=== PATIENT | female | born 1995 | race American Indian/Alaskan Native ===

== ENCOUNTER 2017-02-04 14:46 | Inpatient (IN) | payer OTHER ==
[2017-02-04 14:52] VITALS: BMI 28.1
[2017-02-04] MEDS ORDERED: Sodium Chloride 0.9% 1,000 ML IV STA (15:09)
--- NOTE | 2017-02-04 15:25 | ED PDOC ---
Arrival/HPI - General Chief Complaint: Pain, Chronic Time Seen by Provider: 02/04/17 14:51 - History of Present Illness Narrative History of Present Illness (Text): 02/04/17 15:18 21-year-old female presents the emergency department with low back pain and left lower extremity pain. Patient states she has a history of sickle cell disease and this feels identical to her previous sickle cell crises exacerbation symptoms. Patient denies any chest pain or shortness of breath, denies any dyspnea and exertion, denies any shortness of breath. Patient states that she has no fevers or chills. No other complaints. Past Medical History - Provider Review Nursing Documentation Reviewed: Yes - Infectious Disease Hx of Infectious Diseases: None - Cardiac Hx Circulatory Problems: No - Pulmonary Hx Chronic Obstructive Pulmonary Disease (COPD): No - Neurological Hx Transient Ischemic Attacks (TIA): No - HEENT Hx Cataracts: No - Renal Hx Renal Disorder: No - Endocrine/Metabolic Hx Endocrine Disorders: No - Hematological/Oncological Hx Blood Disorders: Yes Hx Sickle Cell Disease: Yes - Integumentary Hx Dermatological Disorder: No - Musculoskeletal/Rheumatological Hx Musculoskeletal Disorders: No - Gastrointestinal Hx Gastrointestinal Disorders: No - Genitourinary/Gynecological Hx Genitourinary Disorders: No - Psychiatric Hx Psychophysiologic Disorder: No Hx Substance Use: No - Anesthesia Hx Anesthesia: No Family/Social History Family/Social History: Unknown Family HX Smoking Status: Current Some Days Smoker Hx Alcohol Use: Yes Frequency of alcohol use: Socially Hx Substance Use: No Allergies/Home Meds Allergies/Adverse Reactions: Allergies No Known Allergies Allergy (Verified 02/04/17 14:52) Home Medications: Home Meds Medication Instructions Recorded Confirmed No Known Home Med 02/04/17 02/04/17 Physical Exam - Physical Exam Narrative Physical Exam (Text): 02/04/17 15:20 - Review of Systems Constitutional: Normal. absent: Fatigue, Weight Change, Fevers Eyes: Normal ENT: denies sore throat, denies tristhmus Respiratory: Normal. absent: SOB, Cough, Sputum Cardiovascular: absent: Chest Pain, Palpitations, Syncope Gastrointestinal: Normal. absent: Abdominal Pain, Diarrhea, Nausea, Vomiting Genitourinary: Normal. absent: Dysuria, Frequency, Hematuria, vaginal bleeding Musculoskeletal: Arthralgias. absent: Back Pain, Neck Pain Skin: no rashes, no erythema Neurological: absent: Focal Weakness Endocrine: Normal Hemo/Lymphatic: Normal Psychiatric: No suicidal or homicidal ideations Physical exam Patient appears age appropriate in no distress, speaking full sentences without difficulty - Systems Exam Head: Present: Atraumatic, Normocephalic Pupils: Present: PERRL Extroacular Muscles: Present: EOMI Conjunctiva: Present: Normal Mouth: Present: Moist Mucous Membranes Neck: Present: Normal Range of Motion. No: MIDLINE TENDERNESS, Paraspinal Tenderness Respiratory/Chest: Present: Clear to Auscultation, Good Air Exchange. No: Respiratory Distress, Accessory Muscle Use, Tachypneic Cardiovascular: Present: Regular Rate and Rhythm, Normal S1, S2, Peripheal Pulses Present. No: Murmurs Abdomen: Present: Normal Bowel Sounds. No: Tenderness, Distention, Peritoneal Signs, Rebound, Guarding Back: Present: Normal Inspection. No: Midline Tenderness, Paraspinal Tenderness Upper Extremity: Present: Normal Inspection. No: Cyanosis, Edema Lower Extremity: Present: Normal Inspection. b/l LE with +pulses distally, no discoloration, distal neurovasc. intact. No: Edema Neurological: Present: GCS=15, Speech Normal, cranial nerves II through XII fully intact with no cerebellar abnormality, neurosensory fully intact. No focal neurological deficits. Skin: Present: Warm, Dry, Normal Color. No: Rashes Lymphatic: Present: OX3, NI, NC Psychiatric: Present: Alert, Oriented x 3, Normal Insight, Normal Concentration Vital Signs Reviewed: Yes Vital Signs Temp Pulse Resp BP Pulse Ox 02/04/17 16:50 74 18 130/74 99 02/04/17 15:57 79 18 132/89 99 02/04/17 14:55 97.7 F 82 19 134/93 H 99 Temperature: Afebrile Blood Pressure: Hypertensive Pulse: Regular Respiratory Rate: Normal Appearance: Positive for: Well-Appearing Pain Distress: None Mental Status: Positive for: Alert and Oriented X 3 Medical Decision Making ED Course and Treatment: 02/04/17 15:25 21yo female, states she has a hx of SCD, with crisis symptoms. No acute findings on PE. labs, pain meds ordered. will reeval 02/04/17 16:34 Chest xray interpreted by ED physician shows no pneumothorax, no cardiomegaly, no infiltrates 02/04/17 17:25 after morphine and toradol pt states she is still in pain agreeable with admission to the hospital states she has no PMD hospitalist geetha, awaiting callback 02/04/17 17:[address] Toscano, accepted admission to his service - Lab Interpretations Lab Results: 02/04/17 15:20 02/04/17 15:20 Lab Results 02/04/17 16:00: Urine Color Light yellow, Urine Appearance Clear, Urine pH 6.0, Ur Specific [place] 1.015, Urine Protein Negative, Urine Glucose (UA) Negative, Urine Ketones Negative, Urine Blood Large H, Urine Nitrate Negative, Urine Bilirubin Negative, Urine Urobilinogen 0.2, Ur Leukocyte Esterase Negative, Urine RBC Tntc, Urine WBC 0 - 2, Ur Epithelial Cells 1 - 3, Urine Bacteria Few 02/04/17 15:20: Blood Type O POSITIVE, Antibody Screen Negative, BBK History Checked No verified bt 02/04/17 15:20: Sodium 143, Potassium 4.1, Chloride 105, Carbon Dioxide 27, Anion Gap 15, BUN 10, Creatinine 0.6, Est GFR ( Amer) > 60, Est GFR (Non- Af Amer) > 60, Random Glucose 88, Calcium 9.0, Total Bilirubin 1.1, AST 35, ALT 27, Alkaline Phosphatase 71, Total Protein 6.8, Albumin 4.0, Globulin 2.8, Albumin/Globulin Ratio 1.4 02/04/17 15:20: WBC 17.1 H, RBC 4.72, Hgb 12.1, Hct 34.4 L, MCV 72.9 L, MCH 25.6 , MCHC 35.2, RDW 21.8 H, Plt Count 421, MPV 9.7, Gran % 78.6 H, Lymph % (Auto) 11.4 L, [place] % (Auto) 8.1 H, Eos % (Auto) 1.4 L, Baso % (Auto) 0.5, Gran # 13.46 H, Lymph # 2.0, [place] # 1.4 H, Eos # 0.2, Baso # 0.08, Neutrophils % ( Manual) TEST NOT PERFORMED, Lymphocytes % (Manual) TEST NOT PERFORMED, Monocytes % (Manual) TEST NOT PERFORMED, Nucleated RBC % 2, Large Platelets Present, Polychromasia 1+, Hypochromasia 1+, Poikilocytosis (manual 2+, Anisocytosis (manual) 2+, Macrocytosis (manual) 1+, Sickle Cells Slight, Target Cells 2+, Schistocytes Slight, Retic Count 5.37 H - RAD Interpretation Radiology Orders: 02/04/17 15:09 CHEST ONE VIEW [RAD] Stat DUPLEX LOWER EXTRM VEIN LEFT [US] Stat - Medication Orders Current Medication Orders: Discontinued Medications Diphenhydramine HCl (Benadryl) Confirm Administered Dose 50 mg .ROUTE .STK-MED ONE Stop: 02/04/17 15:36 Last Admin: 02/04/17 15:47 Dose: Not Given Non-Admin Reason: Patient Refused Diphenhydramine HCl (Benadryl) 50 mg IVP STAT STA Stop: 02/04/17 15:48 Last Admin: 02/04/17 15:50 Dose: 50 mg Sodium Chloride (Sodium Chloride 0.9%) 1,000 mls @ 1,000 mls/hr IV .Q1H STA Stop: 02/04/17 16:08 Last Admin: 02/04/17 15:37 Dose: 1,000 mls/hr Ketorolac Tromethamine (Toradol) 30 mg IVP STAT STA Stop: 02/04/17 15:10 Last Admin: 02/04/17 15:37 Dose: 30 mg Re-Assess: [facility] Pain Assessment Document 02/04/17 16:37 HP (Rec: 02/04/17 17:[id number] Pain Reassessment Is this a pain reassessment? No Morphine Sulfate (Morphine) 6 mg IVP STAT STA Stop: 02/04/17 15:13 Last Admin: 02/04/17 15:37 Dose: 6 mg Re-Assess: [facility] Pain Assessment Document 02/04/17 16:37 HP (Rec: 02/04/17 17:[address] [id number] Pain Reassessment Is this a pain reassessment? Yes Sleep Is patient sleeping during reassessment? No Presence of Pain Presence of Pain Yes Pain Scale Used Pain Scale Used Numeric Morphine Sulfate (Morphine) 6 mg IVP STAT STA Stop: 02/04/17 16:50 Last Admin: 02/04/17 17:03 Dose: 6 mg Disposition/Present on Arrival - Present on Arrival Any Indicators Present on Arrival: No History of DVT/PE: No History of Uncontrolled Diabetes: No Urinary Catheter: No History of Decub. Ulcer: No History Surgical Site Infection Following: None - Disposition Have Diagnosis and Disposition been Completed?: Yes Diagnosis: Arthralgia Disposition: HOSPITALIZED Disposition Time: 17:33 Patient Plan: Admission Condition: FAIR Forms: [facility] ([place])
[2017-02-04] MEDS ORDERED: DiphenhydrAMINE 50 mg/ml Inj ONE (15:35)
[2017-02-04] MEDS ORDERED: DiphenhydrAMINE 50 mg/ml Inj IVP STA (15:47)
[2017-02-04 15:51] LABS: ALB/GLOB RATIO 1.4 (1.1-1.8); ALKALINE PHOSPHATASE 71 U/L (38-133); ALT/SGPT 27 U/L (7-56); AST/SGOT 35 U/L (15-39); BILIRUBIN,TOTAL 1.1 mg/dL (0.2-1.3); BLOOD UREA NITROGEN 10 mg/dL (7-21); CARBON DIOXIDE 27 mmol/L (21-33); CHLORIDE 105 mmol/L (98-107); GFR AFRICAN-AMERICAN > 60; GLUCOSE,RANDOM 88 mg/dL (70-110); POTASSIUM 4.1 mmol/L (3.6-5.0); SODIUM 143 mmol/L (132-148); TOTAL PROTEIN 6.8 g/dL (5.8-8.3)
[2017-02-04 15:52] LABS: BASO # 0.08 K/mm3 (0.0-2.0); BASO % 0.5 % (0.0-3.0); EOS # 0.2 (0.0-0.7); EOS % 1.4 % (1.5-5.0); GRAN # 13.46 (1.4-6.5); GRAN % 78.6 % (50.0-68.0); HEMATOCRIT 34.4 % (36.0-48.0); LYMPH % 11.4 % (22.0-35.0); MEAN CELL VOLUME 72.9 fl (80.0-105.0); MEAN CORPUSCULAR HEMOGLOBIN 25.6 pg (25.0-35.0); MEAN CORPUSCULAR HGB CONC 35.2 g/dl (31.0-37.0); MEAN PLATELET VOLUME 9.7 fl (7.0-11.0); MONO # 1.4 (0.1-0.6); MONO % 8.1 % (1.0-6.0); PLATELET COUNT 421 10^3/uL (120.0-450.0); RED CELL DISTRIBUTION WIDTH 21.8 % (11.5-14.5); RETIC% 5.37 % (0.5-1.5); WHITE BLOOD COUNT 17.1 10^3/ul (4.5-11.0)
[2017-02-04 16:05] LABS: URINE BILIRUBIN NEGATIVE (NEGATIVE); URINE BLOOD LARGE (NEGATIVE); URINE GLUCOSE (UA) NEGATIVE (NEGATIVE); URINE KETONE NEGATIVE (NEGATIVE); URINE LEUKOCYTE ESTERASE NEGATIVE Leu/uL (NEGATIVE); URINE PROTEIN NEGATIVE mg/dL (<30 mg/dL); URINE UROBILINOGEN 0.2 E.U./dL (<1 E.U./dL)
[2017-02-04 16:07] LABS: URINE APPEARANCE CLEAR (CLEAR); URINE COLOR LIGHT YELLOW (YELLOW)
[2017-02-04 16:10] LABS: URINE BACTERIA FEW (NEG); URINE RBC TNTC /hpf (0-2); URINE WBC 0 - 2 /hpf (0-6)
[2017-02-04 17:27] LABS: ANISOCYTOSIS 2+; HYPOCHROMIA 1+; NUCLEATED RED BLOOD CELL 2 %; POIKILOCYTOSIS 2+; POLYCHROMASIA 1+
[2017-02-04 17:28] LABS: LARGE PLATELETS PRESENT; TARGET CELLS 2+
[2017-02-04] MEDS: Sodium Chloride 0.9% 1,000 ML IV SCH (18:19)
--- NOTE | 2017-02-04 18:20 | CP.PCM.HP ---
<JonathanCarole - Last Filed: 02/04/17 18:54> History of Present Illness - History of Present Illness History of Present Illness: History and Physical for Dr. Farr 21F presents with lower back pain, left lower extremity pain. Patient has a PMH of sickle cell disease. Patient states that it feels like her previous sickle cell crises. Denies SOB, CP, dyspnea on exertion, denies SOB. Patient states she 's had a blood transfusion in the past as a child. The last time the patient had a sickle cell crisis was last year. Patient has never been to [facility] before. CXR and Duplex Lower Extremity Vein Left ordered in ED WBC 17.1 Retic count 5.37 Vitals stable in ED PMH: Sickle Cell Disease PSH: none ALL: NKDA PMD: Dr. Infante - will recheck with patient on proper spelling and contact information Heme/Onc: Dr. Jessica Vick - Office # [phone] Present on Admission - Present on Admission Any Indicators Present on Admission: No History of DVT/PE: No History of Uncontrolled Diabetes: No Urinary Catheter: No Decubitus Ulcer Present: No Past Patient History - Infectious Disease Hx of Infectious Diseases: None - Past Social History Smoking Status: Current Some Days Smoker - CARDIAC Hx Circulatory Problems: No - PULMONARY Hx Chronic Obstructive Pulmonary Disease (COPD): No - NEUROLOGICAL Hx Transient Ischemic Attacks (TIA): No - HEENT Hx Cataracts: No - RENAL Hx Chronic Kidney Disease: No - ENDOCRINE/METABOLIC Hx Endocrine Disorders: No - HEMATOLOGICAL/ONCOLOGICAL Hx Blood Disorders: Yes Hx Sickle Cell Disease: Yes - INTEGUMENTARY Hx Dermatological Problems: No - MUSCULOSKELETAL/RHEUMATOLOGICAL Hx Musculoskeletal Disorders: No - GASTROINTESTINAL Hx Gastrointestinal Disorders: No - GENITOURINARY/GYNECOLOGICAL Hx Genitourinary Disorders: No - PSYCHIATRIC Hx Psychophysiologic Disorder: No Hx Substance Use: No - SURGICAL HISTORY Hx Surgeries: No - ANESTHESIA Hx Anesthesia: No Meds Allergies/Adverse Reactions: Allergies Allergy/AdvReac Type Severity Reaction Status Date / Time No Known Allergies Allergy Verified 02/04/17 19:55 Results - Vital Signs Recent Vital Signs: Last Vital Signs Temp 97.7 F 02/04/17 14:55 Pulse 71 02/04/17 18:00 Resp 18 02/04/17 18:00 BP 128/71 02/04/17 18:00 Pulse Ox 99 02/04/17 18:00 - Labs Result Diagrams: 02/04/17 15:20 02/04/17 15:20 Labs: Laboratory Results - last 24 hr 02/04/17 02/04/17 02/04/17 15:20 15:20 15:20 WBC 17.1 H RBC 4.72 Hgb 12.1 Hct 34.4 L MCV 72.9 L MCH 25.6 MCHC 35.2 RDW 21.8 H Plt Count 421 MPV 9.7 Gran % 78.6 H Lymph % (Auto) 11.4 L [place] % (Auto) 8.1 H Eos % (Auto) 1.4 L Baso % (Auto) 0.5 Gran # 13.46 H Lymph # 2.0 [place] # 1.4 H Eos # 0.2 Baso # 0.08 Neutrophils % (Manual) TEST NOT PERFORMED Lymphocytes % (Manual) TEST NOT PERFORMED Monocytes % (Manual) TEST NOT PERFORMED Nucleated RBC % 2 Large Platelets Present Polychromasia 1+ Hypochromasia 1+ Poikilocytosis (manual 2+ Anisocytosis (manual) 2+ Macrocytosis (manual) 1+ Sickle Cells Slight Target Cells 2+ Schistocytes Slight Retic Count 5.37 H Sodium 143 Potassium 4.1 Chloride 105 Carbon Dioxide 27 Anion Gap 15 BUN 10 Creatinine 0.6 Est GFR ( Amer) > 60 Est GFR (Non-Af Amer) > 60 Random Glucose 88 Calcium 9.0 Total Bilirubin 1.1 AST 35 ALT 27 Alkaline Phosphatase 71 Total Protein 6.8 Albumin 4.0 Globulin 2.8 Albumin/Globulin Ratio 1.4 Urine Color Urine Appearance Urine pH Ur Specific [place] Urine Protein Urine Glucose (UA) Urine Ketones Urine Blood Urine Nitrate Urine Bilirubin Urine Urobilinogen Ur Leukocyte Esterase Urine RBC Urine WBC Ur Epithelial Cells Urine Bacteria Blood Type O POSITIVE Antibody Screen Negative BBK History Checked No verified bt 02/04/17 16:00 WBC RBC Hgb Hct MCV MCH MCHC RDW Plt Count MPV Gran % Lymph % (Auto) [place] % (Auto) Eos % (Auto) Baso % (Auto) Gran # Lymph # [place] # Eos # Baso # Neutrophils % (Manual) Lymphocytes % (Manual) Monocytes % (Manual) Nucleated RBC % Large Platelets Polychromasia Hypochromasia Poikilocytosis (manual Anisocytosis (manual) Macrocytosis (manual) Sickle Cells Target Cells Schistocytes Retic Count Sodium Potassium Chloride Carbon Dioxide Anion Gap BUN Creatinine Est GFR ( Amer) Est GFR (Non-Af Amer) Random Glucose Calcium Total Bilirubin AST ALT Alkaline Phosphatase Total Protein Albumin Globulin Albumin/Globulin Ratio Urine Color Light yellow Urine Appearance Clear Urine pH 6.0 Ur Specific [place] 1.015 Urine Protein Negative Urine Glucose (UA) Negative Urine Ketones Negative Urine Blood Large H Urine Nitrate Negative Urine Bilirubin Negative Urine Urobilinogen 0.2 Ur Leukocyte Esterase Negative Urine RBC Tntc Urine WBC 0 - 2 Ur Epithelial Cells 1 - 3 Urine Bacteria Few Blood Type Antibody Screen BBK History Checked Assessment & Plan - Assessment and Plan (Free Text) Assessment: 21F presenting with retic count 5.37, wbc 17.1, lower back pain, left lower extremity pain and history of sickle cell disease. Plan: Sickle Cell Crisis Monitor daily CBC Monitor Daily Retic count 02/04 Retic Count 5.37 Pain Management: 0.5 mg Dilaudid IVP Q4H IVF NS 150cc/hr DVT/GI PPX Lovenox 30 mg SC QID/Protonix IVP 40mgQD Diet: NPO <Yordan,Anwar A - Last Filed: 02/05/17 08:00> Results - Vital Signs Recent Vital Signs: Last Vital Signs Temp 97.6 F 02/05/17 00:51 Pulse 59 L 02/05/17 00:51 Resp 20 02/05/17 00:51 BP 142/92 H 02/05/17 00:51 Pulse Ox 99 02/05/17 00:51 - Labs Result Diagrams: 02/05/17 07:00 02/05/17 07:00 Labs: Laboratory Results - last 24 hr 02/05/17 02/05/17 07:00 07:00 WBC 16.1 H RBC 4.79 Hgb 12.1 Hct 35.1 L MCV 73.3 L MCH 25.3 MCHC 34.5 RDW 21.7 H Plt Count 419 MPV 9.7 Gran % 74.1 H Lymph % (Auto) 13.0 L [place] % (Auto) 9.6 H Eos % (Auto) 2.9 Baso % (Auto) 0.4 Gran # 11.92 H Lymph # 2.1 [place] # 1.6 H Eos # 0.5 Baso # 0.06 Retic Count 5.45 H Sodium 140 Potassium 4.1 Chloride 101 Carbon Dioxide 30 Anion Gap 13 BUN 11 Creatinine 0.6 Est GFR ( Amer) > 60 Est GFR (Non-Af Amer) > 60 Random Glucose 81 Calcium 8.8 Total Bilirubin 0.9 AST 24 ALT 25 Alkaline Phosphatase 85 Total Protein 6.8 Albumin 3.9 Globulin 2.9 Albumin/Globulin Ratio 1.4 Attending/Attestation - Attestation I have personally seen and examined this patient.: Yes I have fully participated in the care of the patient.: Yes I have reviewed all pertinent clinical information: Yes Notes (Text): 02/04/17 21 year old female with past medical history of sickle cell who is admitted with sickle cell crisis with left leg pain. Continue with iv fluids for hydration. Continue with analgesics as needed. Hematology evaluation is requested. Leukocytosis noted; likely reactive secondary to above. CXR is negative. UA is negative for infection. Will monitor. Henry Farr MD Hospitalist.
[2017-02-04] MEDS: HYDROmorphone 0.5 mg/0.5 ml ISec IVP PRN ×2 (19:10→23:06)
--- NOTE | 2017-02-04 19:12 | US ---
PROCEDURE: Left lower extremity venous US HISTORY: Leg pain and swelling. Evaluate for DVT. PHYSICIAN(S): Tavo Saab MD. TECHNIQUE: Duplex sonography and color-flow Doppler with graded compression were used to evaluate the deep venous system of the left lower extremity. FINDINGS: The visualized deep venous system of the left lower extremity is sonographically normal and compressible. Normal wave forms and augmentation are seen. There is no sonographic evidence for deep venous thrombosis in the visualized segments of the left lower extremity. IMPRESSION: 1. No sonographic evidence for deep venous thrombosis in the visualized segments of the left lower extremity.
[2017-02-04] MEDS: Enoxaparin 30 mg Syringe SC SCH (19:16)
[2017-02-04] MEDS ORDERED: HYDROmorphone 0.5 mg/0.5 ml ISec IVP ONE (20:34)
[2017-02-04] MEDS: DiphenhydrAMINE 50 mg/ml Inj IVP PRN (23:33)
[2017-02-04] MEDS ORDERED: Pneumococcal 23-Valent Vaccine IM ONE (23:42)
[2017-02-05] MEDS: HYDROmorphone 0.5 mg/0.5 ml ISec IVP PRN ×3 (02:48→10:58)
[2017-02-05] MEDS: DiphenhydrAMINE 50 mg/ml Inj IVP PRN ×3 (02:48→10:57)
[2017-02-05] MEDS: Enoxaparin 30 mg Syringe SC SCH (06:43)
[2017-02-05 07:38] LABS: BASO # 0.06 K/mm3 (0.0-2.0); BASO % 0.4 % (0.0-3.0); EOS # 0.5 (0.0-0.7); EOS % 2.9 % (1.5-5.0); GRAN # 11.92 (1.4-6.5); GRAN % 74.1 % (50.0-68.0); HEMATOCRIT 35.1 % (36.0-48.0); LYMPH # 2.1 (1.2-3.4); MEAN CELL VOLUME 73.3 fl (80.0-105.0); MEAN CORPUSCULAR HEMOGLOBIN 25.3 pg (25.0-35.0); MEAN CORPUSCULAR HGB CONC 34.5 g/dl (31.0-37.0); MEAN PLATELET VOLUME 9.7 fl (7.0-11.0); MONO # 1.6 (0.1-0.6); MONO % 9.6 % (1.0-6.0); RED CELL DISTRIBUTION WIDTH 21.7 % (11.5-14.5); RETIC% 5.45 % (0.5-1.5); WHITE BLOOD COUNT 16.1 10^3/ul (4.5-11.0)
[2017-02-05 07:48] LABS: ALB/GLOB RATIO 1.4 (1.1-1.8); ALKALINE PHOSPHATASE 85 U/L (38-133); ALT/SGPT 25 U/L (7-56); AST/SGOT 24 U/L (15-39); BILIRUBIN,TOTAL 0.9 mg/dL (0.2-1.3); BLOOD UREA NITROGEN 11 mg/dL (7-21); CALCIUM 8.8 mg/dL (8.4-10.5); CARBON DIOXIDE 30 mmol/L (21-33); CHLORIDE 101 mmol/L (95-110); GFR AFRICAN-AMERICAN > 60; GLUCOSE,RANDOM 81 mg/dL (70-110); POTASSIUM 4.1 mmol/L (3.6-5.0); SODIUM 140 mmol/L (132-148); TOTAL PROTEIN 6.8 g/dL (5.8-8.3)
--- NOTE | 2017-02-05 07:56 | RAD ---
PROCEDURE: CHEST RADIOGRAPH, 1 VIEW HISTORY: scd COMPARISON: None available. FINDINGS: LUNGS: Clear. PLEURA: No pneumothorax or pleural fluid seen. CARDIOVASCULAR: Normal. OSSEOUS STRUCTURES: No significant abnormalities. VISUALIZED UPPER ABDOMEN: Normal. OTHER FINDINGS: None. IMPRESSION: No active disease.
[2017-02-05] MEDS: Sodium Chloride 0.9% 1,000 ML IV SCH ×2 (08:17→15:00)
[2017-02-05] MEDS: Morphine 4 mg/ml ISec IVP PRN ×5 (08:23→23:26)
--- NOTE | 2017-02-05 08:38 | CP.PCM.PN ---
<JonathanCarole - Last Filed: 02/05/17 13:23> Subjective - Date & Time of Evaluation Date of Evaluation: 02/05/17 Time of Evaluation: 08:38 - Subjective Subjective: Internal Medicine Progress note for Dr. Farr: PT S&E at bedside. Patient complained of pain 10/10 per patient overnight. Patient also complained of itchiness overnight. PRN pain medication was given Dilaudid 0.5 mg Q4H PRN at 0643 Benadryl at [address] Evans Morphine 4mg Q4H PRN [address] Evans Patient states that Dilaudid does not work for her and usually Morphine does. She asked to discontinue morphine. Patient was seen limping from the bathroom and closes the door loudly as we finished our visit to the patient's room. Patient states she feels worse if not the same as yesterday. Patient denies Fever, Chills, chest pain, coughing, shortness of breath. Patient admits to pain in left leg. Patient denies hip pain and lower back pain. Retic 5.45 WBC 16.1 [facility] Sickle cell coordinator [phone] called to discuss patient's history. Patient has Hemoglobin SC. June 2016 last visit on Chronic medication percocet 10/ 325 PO Q6H MScontin Q12, Ibupof 600mg Q6H PRN. However, patient has not had a prescription from Dr. Vick since June. 04/2016 went to the ED for sickle cell crisis and went for observation for 2 days. Patient went to ED for sickle cell crisis in July 12, , 2016 at [facility]. June Retic counts during hospital visit: 07/09/2016, 4.3 Retic,004149 5.7, 5.8 Patient received toradol 30mg q6H LACY for 72 hr. 8mg morphine Q3H with Benadryl 25 Q3H, MS contin 30 Q12H, Enoxaparin, folic acid in the hospital. Objective - Vital Signs/Intake and Output Vital Signs (last 24 hours): Temp Pulse Resp BP Pulse Ox 97.6 F 59 L 20 142/92 H 99 02/05/17 00:51 02/05/17 00:51 02/05/17 00:51 02/05/17 00:51 02/05/17 00:51 Intake and Output: 02/05/17 02/05/17 06:59 18:59 Intake Total 660 Balance 660 - Medications Medications: Current Medications Diphenhydramine HCl (Benadryl) 25 mg IVP Q4H PRN PRN Reason: Allergy symptoms Last Admin: 02/05/17 06:43 Dose: 25 mg Enoxaparin Sodium (Lovenox) 40 mg SC DAILY LACY PRN Reason: Protocol Hydromorphone HCl (Dilaudid) 0.5 mg IVP Q4H PRN PRN Reason: Pain, moderate (4-7) Last Admin: 02/05/17 06:43 Dose: 0.5 mg Sodium Chloride (Sodium Chloride 0.9%) 1,000 mls @ 150 mls/hr IV .Q6H40M LACY Last Admin: 02/05/17 08:17 Dose: 150 mls/hr Morphine Sulfate (Morphine) 4 mg IVP Q4H PRN PRN Reason: Pain, severe (8-10) Last Admin: 02/05/17 08:23 Dose: 4 mg Pantoprazole Sodium (Protonix Inj) 40 mg IVP DAILY REPLACED BY [facility] - Labs Labs: 02/05/17 07:00 02/05/17 07:00 - Constitutional Appears: Non-toxic, No Acute Distress - Head Exam Head Exam: NORMAL INSPECTION - Eye Exam Eye Exam: EOMI, Normal appearance - ENT Exam ENT Exam: Mucous Membranes Moist - Neck Exam Neck Exam: Full ROM - Respiratory Exam Respiratory Exam: Clear to Ausculation Bilateral, NORMAL BREATHING PATTERN. absent: Accessory Muscle Use, Prolonged Expiratory Phase, Respiratory Distress, Stridor - Cardiovascular Exam Cardiovascular Exam: REGULAR RHYTHM - GI/Abdominal Exam GI & Abdominal Exam: Soft. absent: Tenderness - Extremities Exam Extremities Exam: Full ROM, Normal Inspection, Tenderness. absent: Joint Swelling, Pedal Edema Additional comments: did not appreciate any edema, signs of induration, erythema. Patient states she has a lot of pain on left knee and along left leg. Patient was seen limping from bathroom - Back Exam Back Exam: Full ROM, NORMAL INSPECTION. absent: CVA tenderness (L), CVA tenderness (R), muscle spasm - Neurological Exam Neurological Exam: Alert, Awake, Normal Gait, Oriented x3 - Psychiatric Exam Psychiatric exam: Flat Affect, Normal Affect, Normal Mood - Skin Skin Exam: Dry, Normal Color, Warm Assessment and Plan - Assessment and Plan (Free Text) Assessment: 21F presenting with retic count 5.37, wbc 17.1, lower back pain, left lower extremity pain and history of sickle cell disease. Plan: Sickle Cell Crisis Monitor daily CBC Monitor Daily Retic count 02/04 Retic Count 5.37 Pain Management: 4mg Morphine Q4H, Percocet 5/325 mg for breakthrough Q4H IVF NS 150cc/hr DVT/GI PPX Lovenox 40mg POQD/Protonix IVP 40mgQD Diet: NPO <YordanDidisherin A - Last Filed: 02/05/17 17:44> Objective - Vital Signs/Intake and Output Vital Signs (last 24 hours): Temp Pulse Resp BP Pulse Ox 97.8 F 64 20 146/86 98 02/05/17 16:00 02/05/17 16:00 02/05/17 16:00 02/05/17 16:00 02/05/17 16:00 Intake and Output: 02/05/17 02/05/17 06:59 18:59 Intake Total 660 360 Balance 660 360 - Medications Medications: Current Medications Enoxaparin Sodium (Lovenox) 40 mg SC DAILY REPLACED BY [facility] PRN Reason: Protocol Sodium Chloride (Sodium Chloride 0.9%) 1,000 mls @ 150 mls/hr IV .Q6H40M REPLACED BY [facility] Last Admin: 02/05/17 15:00 Dose: 150 mls/hr Morphine Sulfate (Morphine) 4 mg IVP Q3H PRN PRN Reason: Pain, severe (8-10) Last Admin: 02/05/17 16:37 Dose: 4 mg Oxycodone/Acetaminophen (Percocet 5/325 Mg Tab) 1 tab PO Q6H PRN PRN Reason: Pain, severe (8-10) Stop: 02/08/17 12:52 Pantoprazole Sodium (Protonix Inj) 40 mg IVP DAILY REPLACED BY [facility] Last Admin: 02/05/17 09:45 Dose: 40 mg - Labs Labs: 02/05/17 07:00 02/05/17 07:00 Attending/Attestation - Attestation I have personally seen and examined this patient.: Yes I have fully participated in the care of the patient.: Yes I have reviewed all pertinent clinical information, including history, physical exam and plan: Yes Notes (Text): 02/05/17 17:43 21 year old female with past medical history of sickle cell who is admitted with sickle cell crisis with left leg pain. Continue with iv fluids for hydration. Continue with analgesics as needed. Hematology evaluation is pending. She is on morphine prn for pain and percocet was added. Leukocytosis is likely reactive secondary to above. CXR is negative. UA is negative for infection. Will continue to monitor. Henry Farr MD Hospitalist.
[2017-02-05] MEDS ORDERED: Oxycodone/Acetaminophen 5/325 mg Tab PO PRN (12:51)
[2017-02-05 16:38] VITALS: RESP 20; TEMP 97.8
[2017-02-05 18:34] LABS: PH,URINE 7.5 (4.7-8.0); URINE BILIRUBIN NEGATIVE (NEGATIVE); URINE BLOOD LARGE (NEGATIVE); URINE GLUCOSE (UA) NEGATIVE (NEGATIVE); URINE KETONE NEGATIVE (NEGATIVE); URINE LEUKOCYTE ESTERASE NEGATIVE Leu/uL (NEGATIVE); URINE PROTEIN NEGATIVE mg/dL (<30 mg/dL); URINE UROBILINOGEN 0.2 E.U./dL (<1 E.U./dL)
[2017-02-05 18:37] LABS: URINE APPEARANCE CLEAR (CLEAR); URINE COLOR YELLOW (YELLOW)
[2017-02-05 18:43] LABS: URINE WBC 0 - 2 /hpf (0-6)
[2017-02-05] MEDS: Oxycodone/Acetaminophen 5/325 mg Tab PO PRN (20:32)
[2017-02-06] MEDS: Morphine 4 mg/ml ISec IVP PRN ×4 (03:01→12:33)
[2017-02-06] MEDS: Oxycodone/Acetaminophen 5/325 mg Tab PO PRN ×2 (05:21→11:33)
[2017-02-06 07:01] LABS: ALB/GLOB RATIO 1.5 (1.1-1.8); ALKALINE PHOSPHATASE 70 U/L (38-133); ALT/SGPT 23 U/L (7-56); AST/SGOT 21 U/L (15-39); BILIRUBIN,TOTAL 0.8 mg/dL (0.2-1.3); BLOOD UREA NITROGEN 14 mg/dL (7-21); CALCIUM 8.4 mg/dL (8.4-10.5); CARBON DIOXIDE 30 mmol/L (21-33); CHLORIDE 102 mmol/L (98-107); GFR AFRICAN-AMERICAN > 60; GLUCOSE,RANDOM 108 mg/dL (70-110); POTASSIUM 3.9 mmol/L (3.6-5.0); SODIUM 139 mmol/L (132-148); TOTAL PROTEIN 6.2 g/dL (5.8-8.3)
[2017-02-06 07:08] LABS: BASO # 0.08 K/mm3 (0.0-2.0); BASO % 0.5 % (0.0-3.0); EOS # 0.4 (0.0-0.7); EOS % 2.4 % (1.5-5.0); GRAN # 13.28 (1.4-6.5); GRAN % 75.5 % (50.0-68.0); HEMATOCRIT 33.5 % (36.0-48.0); LYMPH # 2.3 (1.2-3.4); LYMPH % 12.8 % (22.0-35.0); MEAN CELL VOLUME 72.8 fl (80.0-105.0); MEAN CORPUSCULAR HEMOGLOBIN 25.2 pg (25.0-35.0); MEAN CORPUSCULAR HGB CONC 34.6 g/dl (31.0-37.0); MEAN PLATELET VOLUME 9.9 fl (7.0-11.0); MONO # 1.6 (0.1-0.6); MONO % 8.8 % (1.0-6.0); PLATELET COUNT 414 10^3/uL (120.0-450.0); RED CELL DISTRIBUTION WIDTH 21.5 % (11.5-14.5); RETIC% 5.59 % (0.5-1.5); WHITE BLOOD COUNT 17.6 10^3/ul (4.5-11.0)
[2017-02-06 08:32] VITALS: BP 142/95; PULSE 64; O2SAT 99
[2017-02-06] MEDS ORDERED: Enoxaparin 40 mg Syringe SC SCH (10:00)
[2017-02-06] MEDS: Sodium Chloride 0.9% 1,000 ML IV SCH (11:33)
--- NOTE | 2017-02-06 17:01 | CP.PCM.DIS ---
<JonathanCarole - Last Filed: 02/06/17 18:06> Provider - Provider Date of Admission: 02/04/17 17:33 Attending physician: Henry Farr MD Consults: Dr. Cassandra henderson Time Spent in preparation of Discharge (in minutes): 35 Hospital Course - Lab Results Lab Results: Micro Results 02/04/17 20:50 Blood-Venous Blood Culture - Preliminary NO GROWTH AFTER 24 HOURS 02/04/17 20:30 Blood-Venous Blood Culture - Preliminary NO GROWTH AFTER 24 HOURS Most Recent Lab Values WBC 17.6 10^3/ul (4.5-11.0) H 02/06/17 06:12 RBC 4.60 10^6/uL (3.5-6.1) 02/06/17 06:12 Hgb 11.6 g/dL (12.0-16.0) L 02/06/17 06:12 Hct 33.5 % (36.0-48.0) L 02/06/17 06:12 MCV 72.8 fl (80.0-105.0) L 02/06/17 06:12 MCH 25.2 pg (25.0-35.0) 02/06/17 06:12 MCHC 34.6 g/dl (31.0-37.0) 02/06/17 06:12 RDW 21.5 % (11.5-14.5) H 02/06/17 06:12 Plt Count 414 10^3/uL (120.0-450.0) 02/06/17 06:12 MPV 9.9 fl (7.0-11.0) 02/06/17 06:12 Gran % 75.5 % (50.0-68.0) H 02/06/17 06:12 Lymph % (Auto) 12.8 % (22.0-35.0) L 02/06/17 06:12 Ward % (Auto) 8.8 % (1.0-6.0) H 02/06/17 06:12 Eos % (Auto) 2.4 % (1.5-5.0) 02/06/17 06:12 Baso % (Auto) 0.5 % (0.0-3.0) 02/06/17 06:12 Gran # 13.28 (1.4-6.5) H 02/06/17 06:12 Lymph # 2.3 (1.2-3.4) 02/06/17 06:12 [place] # 1.6 (0.1-0.6) H 02/06/17 06:12 Eos # 0.4 (0.0-0.7) 02/06/17 06:12 Baso # 0.08 K/mm3 (0.0-2.0) 02/06/17 06:12 Neutrophils % (Manual) TEST NOT PERFORMED 02/04/17 15:20 Lymphocytes % (Manual) TEST NOT PERFORMED 02/04/17 15:20 Monocytes % (Manual) TEST NOT PERFORMED 02/04/17 15:20 Nucleated RBC % 2 % 02/04/17 15:20 Large Platelets Present 02/04/17 15:20 Polychromasia 1+ 02/04/17 15:20 Hypochromasia 1+ 02/04/17 15:20 Poikilocytosis (manual 2+ 02/04/17 15:20 Anisocytosis (manual) 2+ 02/04/17 15:20 Macrocytosis (manual) 1+ 02/04/17 15:20 Sickle Cells Slight 02/04/17 15:20 Target Cells 2+ 02/04/17 15:20 Schistocytes Slight 02/04/17 15:20 Retic Count 5.59 % (0.5-1.5) H 02/06/17 06:12 Haptoglobin 60 mg/dL (43-212) 02/05/17 08:20 Sodium 139 mmol/L (132-148) 02/06/17 06:15 Potassium 3.9 mmol/L (3.6-5.0) 02/06/17 06:15 Chloride 102 mmol/L (98-107) 02/06/17 06:15 Carbon Dioxide 30 mmol/L (21-33) 02/06/17 06:15 Anion Gap 11 (10-20) 02/06/17 06:15 BUN 14 mg/dL (7-21) 02/06/17 06:15 Creatinine 0.7 mg/dL (0.5-1.4) 02/06/17 06:15 Est GFR ( Amer) > 60 02/06/17 06:15 Est GFR (Non-Af Amer) > 60 02/06/17 06:15 Random Glucose 108 mg/dL (70-110) 02/06/17 06:15 Calcium 8.4 mg/dL (8.4-10.5) 02/06/17 06:15 Total Bilirubin 0.8 mg/dL (0.2-1.3) 02/06/17 06:15 AST 21 U/L (15-39) 02/06/17 06:15 ALT 23 U/L (7-56) 02/06/17 06:15 Alkaline Phosphatase 70 U/L (38-133) 02/06/17 06:15 Lactate Dehydrogenase 651 U/L (333-699) 02/05/17 08:20 Total Protein 6.2 g/dL (5.8-8.3) 02/06/17 06:15 Albumin 3.7 g/dL (3.0-4.8) 02/06/17 06:15 Globulin 2.5 gm/dL 02/06/17 06:15 Albumin/Globulin Ratio 1.5 (1.1-1.8) 02/06/17 06:15 Urine Color Yellow (YELLOW) 02/05/17 18:16 Urine Appearance Clear (CLEAR) 02/05/17 18:16 Urine pH 7.5 (4.7-8.0) 02/05/17 18:16 Ur Specific [place] 1.010 (1.005-1.035) 02/05/17 18:16 Urine Protein Negative mg/dL (<30 mg/dL) 02/05/17 18:16 Urine Glucose (UA) Negative mg/dL (NEGATIVE) 02/05/17 18:16 Urine Ketones Negative mg/dL (NEGATIVE) 02/05/17 18:16 Urine Blood Large (NEGATIVE) H 02/05/17 18:16 Urine Nitrate Negative (NEGATIVE) 02/05/17 18:16 Urine Bilirubin Negative (NEGATIVE) 02/05/17 18:16 Urine Urobilinogen 0.2 E.U./dL (<1 E.U./dL) 02/05/17 18:16 Ur Leukocyte Esterase Negative Andry/uL (NEGATIVE) 02/05/17 18:16 Urine RBC 5 - 10 /hpf (0-2) 02/05/17 18:16 Urine WBC 0 - 2 /hpf (0-6) 02/05/17 18:16 Ur Epithelial Cells 1 - 3 /hpf (0-5) 02/04/17 16:00 Urine Bacteria Few (NEG) 02/04/17 16:00 Blood Type O POSITIVE 02/04/17 15:20 Blood Type Confirm O POSITIVE 02/05/17 07:00 Antibody Screen Negative 02/04/17 15:20 BBK History Checked No verified bt 02/04/17 15:20 - Hospital Course Hospital Course: 21F presents with lower back pain, left lower extremity pain. Patient has a PMH of sickle cell disease. Patient states that it feels like her previous sickle cell crises. Denies SOB, CP, dyspnea on exertion, denies SOB. Patient states she 's had a blood transfusion in the past as a child. The last time the patient had a sickle cell crisis was last year. Patient has never been to [facility] before. CXR and Duplex Lower Extremity Vein Left ordered in ED No pathologies seen on either exam on 02/05/17 PT S&E at bedside. Patient complained of pain 10/10 per patient overnight. Patient also complained of itchiness overnight. PRN pain medication was given Dilaudid 0.5 mg Q4H PRN at 0643 Benadryl [place] [address] Evans Morphine 4mg Q4H PRN [address] Evans Patient states that Dilaudid does not work for her and usually Morphine does. She asked to discontinue morphine. Patient was seen limping from the bathroom and closes the door loudly as we finished our visit to the patient's room. Patient states she feels worse if not the same as yesterday. Patient denies Fever, Chills, chest pain, coughing, shortness of breath. Patient admits to pain in left leg. Patient denies hip pain and lower back pain. Retic 5.45 WBC 16.1 Resident spoke with Sickle cell coordinator [phone] discuss patient's history. Patient has Hemoglobin SC. June 2016 last visit on Chronic medication percocet 10/325 PO Q6H MScontin Q12, Ibupof 600mg Q6H PRN. However, patient has not had a prescription from Dr. Vick since June. 04/2016 went to the ED for sickle cell crisis and went for observation for 2 days. Patient went to ED for sickle cell crisis in July 12, , 2016 at [facility]. June Retic counts during hospital visit: 07/09/2016, 4.3 Retic, 5.7, 5.8 Patient received toradol 30mg q6H LACY for 72 hr. 8mg morphine Q3H with Benadryl 25 Q3H, MS contin 30 Q12H, Enoxaparin, folic acid in the hospital. PT S&E at bedside today. Patient states she feels okay and is ready to be discharged after asking for doctor's note to be excused from work. While writing the prescriptions for medications and the doctor note, patient left her room prior to being handed prescriptions. Resident was called down to hand the prescriptions to the patient. All issues resolved at the time. - Date & Time of H&P Date of H&P: 02/06/17 Time of H&P: 18:06 Discharge Exam - Head Exam Head Exam: NORMAL INSPECTION - Eye Exam Eye Exam: EOMI, Normal appearance - ENT Exam ENT Exam: Mucous Membranes Moist - Neck Exam Neck exam: Full Rom - Respiratory Exam Respiratory Exam: NORMAL BREATHING PATTERN, UNREMARKABLE. absent: Accessory Muscle Use, Respiratory Distress - Cardiovascular Exam Cardiovascular Exam: REGULAR RHYTHM - GI/Abdominal Exam GI & Abdominal Exam: Normal Bowel Sounds, Soft. absent: Pulsatile Mass, Rebound , Tenderness - Extremities Exam Extremities exam: full ROM - Neurological Exam Neurological exam: Alert, Oriented x3 - Psychiatric Exam Psychiatric exam: Flat Affect, Normal Mood - Skin Skin Exam: Dry, Intact, Normal Color, Warm Discharge Plan - Discharge Medications Prescriptions: Acetaminophen/Oxycodone Hydr [Percocet 10/325 mg Tab] 1 tab PO Q6H #12 tab - Follow Up Plan Condition: FAIR Disposition: HOME/ ROUTINE Instructions: Chronic Pain (DC), Sickle Cell Crisis (DC), Opioid Dependence (DC ), Fall Prevention (DC) Additional Instructions: 1. follow up with heme/onc doctor 1 week 2. return to work in two to three days. Please see Doctor's Note 3. follow up with primary care doctor in 1 week 4. Consider cutting down on tylenol 3 (for liver toxicity) <Henry Farr - Last Filed: 02/07/17 07:26> Provider - Provider Date of Admission: 02/04/17 17:33 Attending physician: Henry Farr MD Hospital Course - Lab Results Lab Results: Micro Results 02/04/17 20:50 Blood-Venous Blood Culture - Preliminary NO GROWTH AFTER 48 HOURS 02/04/17 20:30 Blood-Venous Blood Culture - Preliminary NO GROWTH AFTER 48 HOURS Most Recent Lab Values WBC 17.6 10^3/ul (4.5-11.0) H 02/06/17 06:12 RBC 4.60 10^6/uL (3.5-6.1) 02/06/17 06:12 Hgb 11.6 g/dL (12.0-16.0) L 02/06/17 06:12 Hct 33.5 % (36.0-48.0) L 02/06/17 06:12 MCV 72.8 fl (80.0-105.0) L 02/06/17 06:12 MCH 25.2 pg (25.0-35.0) 02/06/17 06:12 MCHC 34.6 g/dl (31.0-37.0) 02/06/17 06:12 RDW 21.5 % (11.5-14.5) H 02/06/17 06:12 Plt Count 414 10^3/uL (120.0-450.0) 02/06/17 06:12 MPV 9.9 fl (7.0-11.0) 02/06/17 06:12 Gran % 75.5 % (50.0-68.0) H 02/06/17 06:12 Lymph % (Auto) 12.8 % (22.0-35.0) L 02/06/17 06:12 Ward % (Auto) 8.8 % (1.0-6.0) H 02/06/17 06:12 Eos % (Auto) 2.4 % (1.5-5.0) 02/06/17 06:12 Baso % (Auto) 0.5 % (0.0-3.0) 02/06/17 06:12 Gran # 13.28 (1.4-6.5) H 02/06/17 06:12 Lymph # 2.3 (1.2-3.4) 02/06/17 06:12 Ward # 1.6 (0.1-0.6) H 02/06/17 06:12 Eos # 0.4 (0.0-0.7) 02/06/17 06:12 Baso # 0.08 K/mm3 (0.0-2.0) 02/06/17 06:12 Neutrophils % (Manual) TEST NOT PERFORMED 02/04/17 15:20 Lymphocytes % (Manual) TEST NOT PERFORMED 02/04/17 15:20 Monocytes % (Manual) TEST NOT PERFORMED 02/04/17 15:20 Nucleated RBC % 2 % 02/04/17 15:20 Large Platelets Present 02/04/17 15:20 Polychromasia 1+ 02/04/17 15:20 Hypochromasia 1+ 02/04/17 15:20 Poikilocytosis (manual 2+ 02/04/17 15:20 Anisocytosis (manual) 2+ 02/04/17 15:20 Macrocytosis (manual) 1+ 02/04/17 15:20 Sickle Cells Slight 02/04/17 15:20 Target Cells 2+ 02/04/17 15:20 Schistocytes Slight 02/04/17 15:20 Retic Count 5.59 % (0.5-1.5) H 02/06/17 06:12 Haptoglobin 60 mg/dL (43-212) 02/05/17 08:20 Sodium 139 mmol/L (132-148) 02/06/17 06:15 Potassium 3.9 mmol/L (3.6-5.0) 02/06/17 06:15 Chloride 102 mmol/L (98-107) 02/06/17 06:15 Carbon Dioxide 30 mmol/L (21-33) 02/06/17 06:15 Anion Gap 11 (10-20) 02/06/17 06:15 BUN 14 mg/dL (7-21) 02/06/17 06:15 Creatinine 0.7 mg/dL (0.5-1.4) 02/06/17 06:15 Est GFR ( Amer) > 60 02/06/17 06:15 Est GFR (Non-Af Amer) > 60 02/06/17 06:15 Random Glucose 108 mg/dL (70-110) 02/06/17 06:15 Calcium 8.4 mg/dL (8.4-10.5) 02/06/17 06:15 Total Bilirubin 0.8 mg/dL (0.2-1.3) 02/06/17 06:15 AST 21 U/L (15-39) 02/06/17 06:15 ALT 23 U/L (7-56) 02/06/17 06:15 Alkaline Phosphatase 70 U/L (38-133) 02/06/17 06:15 Lactate Dehydrogenase 651 U/L (333-699) 02/05/17 08:20 Total Protein 6.2 g/dL (5.8-8.3) 02/06/17 06:15 Albumin 3.7 g/dL (3.0-4.8) 02/06/17 06:15 Globulin 2.5 gm/dL 02/06/17 06:15 Albumin/Globulin Ratio 1.5 (1.1-1.8) 02/06/17 06:15 Urine Color Yellow (YELLOW) 02/05/17 18:16 Urine Appearance Clear (CLEAR) 02/05/17 18:16 Urine pH 7.5 (4.7-8.0) 02/05/17 18:16 Ur Specific [place] 1.010 (1.005-1.035) 02/05/17 18:16 Urine Protein Negative mg/dL (<30 mg/dL) 02/05/17 18:16 Urine Glucose (UA) Negative mg/dL (NEGATIVE) 02/05/17 18:16 Urine Ketones Negative mg/dL (NEGATIVE) 02/05/17 18:16 Urine Blood Large (NEGATIVE) H 02/05/17 18:16 Urine Nitrate Negative (NEGATIVE) 02/05/17 18:16 Urine Bilirubin Negative (NEGATIVE) 02/05/17 18:16 Urine Urobilinogen 0.2 E.U./dL (<1 E.U./dL) 02/05/17 18:16 Ur Leukocyte Esterase Negative Andry/uL (NEGATIVE) 02/05/17 18:16 Urine RBC 5 - 10 /hpf (0-2) 02/05/17 18:16 Urine WBC 0 - 2 /hpf (0-6) 02/05/17 18:16 Ur Epithelial Cells 1 - 3 /hpf (0-5) 02/04/17 16:00 Urine Bacteria Few (NEG) 02/04/17 16:00 Blood Type O POSITIVE 02/04/17 15:20 Blood Type Confirm O POSITIVE 02/05/17 07:00 Antibody Screen Negative 02/04/17 15:20 BBK History Checked No verified bt 02/04/17 15:20 Attending/Attestation - Attestation I have personally seen and examined this patient.: Yes I have fully participated in the care of the patient.: Yes I have reviewed all pertinent clinical information, including history, physical exam and plan: Yes Notes (Text): 02/06/17 21 year old female with past medical history of sickle cell who is admitted with sickle cell crisis with left leg pain. She was started on iv fluids and analgesics. Her symptoms improved and she is ambulating today. She has leukocytosis which is likely reactive. CXR and UA were negative for infection. Case was discussed with hematology who recommended outpatient follow up. Patient is discharged home to follow up with her pmd. Follow up with nurse auditor. Henry Farr MD Hospitalist.
== END 2017-02-06 15:39 | disposition home or self-care (01) | DRG 395 ==
LOC: ED 14:46 → ERH 17:33 → 5RSO 18:40
PROVIDERS: ADMIT Internal Medicine; ATTEND Internal Medicine
DX: D57.00 Hb-SS disease with crisis, unspecified (principal); D72.829 Elevated white blood cell count, unspecified; M79.605 Pain in left leg

== ENCOUNTER 2017-05-17 16:52 | Emergency (ER) | payer OTHER ==
[2017-05-17 16:53] VITALS: BMI 28.1
--- NOTE | 2017-05-17 16:55 | ED PDOC ---
Arrival/HPI - General Time Seen by Provider: 05/17/17 16:53 Historian: Patient - History of Present Illness Narrative History of Present Illness (Text): 05/17/17 16:54 21 y/o female, pmh including sickle cell disease/anemia, nkda, c/o generalized joint pain and rt. lower extremity pain x 1 day. Pt. stated that she woke up this morning with the generalized bodyache including the rib pain and rt. lower extremity pain, aching pain, limited relief with the advil at home with last dose over 6 hours ago, no numbness or tingling, no chest pain or shortness of breath, no palpitation, no rash, no coughing, no night sweat, no other medical or psychological complaints. Past Medical History - Provider Review Nursing Documentation Reviewed: Yes - Infectious Disease Hx of Infectious Diseases: None - Cardiac Hx Cardiac Disorders: No Hx Circulatory Problems: No - Pulmonary Hx Respiratory Disorders: Yes (SMOKES OCCASIONAL CIGARETTES 2/D) Hx Chronic Obstructive Pulmonary Disease (COPD): No - Neurological Hx Neurological Disorder: No Hx Transient Ischemic Attacks (TIA): No - HEENT Hx HEENT Disorder: No Hx Cataracts: No - Renal Hx Renal Disorder: No - Endocrine/Metabolic Hx Endocrine Disorders: Yes - Hematological/Oncological Hx Blood Disorders: Yes (SICKLE CELL) Hx Sickle Cell Disease: Yes - Integumentary Hx Dermatological Disorder: No - Musculoskeletal/Rheumatological Hx Musculoskeletal Disorders: No Hx Falls: No - Gastrointestinal Hx Gastrointestinal Disorders: No - Genitourinary/Gynecological Hx Genitourinary Disorders: No - Psychiatric Hx Psychophysiologic Disorder: No Hx Substance Use: No - Anesthesia Hx Anesthesia: No Family/Social History - Physician Review Nursing Documentation Reviewed: Yes Family/Social History: Unknown Family HX Smoking Status: Current Some Days Smoker Hx Alcohol Use: Yes (OCCASIONALLY) Hx Substance Use: No Allergies/Home Meds Allergies/Adverse Reactions: Allergies No Known Allergies Allergy (Verified 05/17/17 17:05) Review of Systems - Review of Systems Constitutional: absent: Fatigue, Fevers Eyes: absent: Vision Changes ENT: absent: Hearing Changes Respiratory: absent: SOB, Cough Cardiovascular: absent: Chest Pain Gastrointestinal: absent: Abdominal Pain, Nausea, Vomiting Musculoskeletal: Arthralgias, Myalgias. absent: Back Pain, Neck Pain, Joint Swelling Skin: absent: Rash, Pruritis, Skin Lesions Neurological: absent: Headache, Dizziness Psychiatric: absent: Anxiety, Depression, Suicidal Ideation Physical Exam Vital Signs Reviewed: Yes Vital Signs Temp Pulse Resp BP Pulse Ox 05/17/17 18:51 98.2 F 94 H 16 122/48 L 100 05/17/17 16:56 98.5 F 85 19 135/93 H 98 05/17/17 16:53 98.5 F 85 19 135/93 H 98 Temperature: Afebrile Blood Pressure: Hypertensive Pulse: Regular Respiratory Rate: Normal Appearance: Positive for: Well-Appearing, Non-Toxic Pain Distress: Severe Mental Status: Positive for: Alert and Oriented X 3 - Systems Exam Head: Present: Atraumatic, Normocephalic Pupils: Present: PERRL Extroacular Muscles: Present: EOMI Conjunctiva: Present: Normal Mouth: Present: Moist Mucous Membranes Neck: Present: Normal Range of Motion Respiratory/Chest: Present: Clear to Auscultation, Good Air Exchange. No: Respiratory Distress, Accessory Muscle Use, Wheezes, Decreased Breath Sounds, Rales, Retracting, Rhonchi Cardiovascular: Present: Regular Rate and Rhythm, Normal S1, S2, Other (no pedal edema). No: Murmurs Abdomen: Present: Normal Bowel Sounds. No: Tenderness, Distention, Peritoneal Signs, Rebound, Guarding Back: Present: Normal Inspection Upper Extremity: Present: Normal Inspection. No: Cyanosis, Edema Lower Extremity: Present: Normal Inspection, Other (RLE: no tenderness or swelling, negative steve and renee signs, FROM without limitation, sensation intact, motor 5/5, +DPPT pulses, capilllary refill< 2 seconds, neurovascular intact. ). No: Edema Neurological: Present: GCS=15, CN II-XII Intact, Speech Normal Skin: Present: Warm, Dry, Normal Color. No: Rashes Psychiatric: Present: Alert, Oriented x 3, Normal Insight, Normal Concentration Medical Decision Making ED Course and Treatment: 05/17/17 17:25 -labs/ua/reticulocyte count -RLE venuous doppler -CXR -IVF/toradol/morphien 4mg/nasal cannula 4L oxygen -observe and reassess 05/17/17 17:32 -Urine hcg negative. 05/17/17 17:59 -Chest xray: No focal consolidation, significant pleural effusion, or definite pneumothorax identified. -RLE Venuous Doppler: as pre preliminary report, no acute DVT 05/17/17 18:11 -Pt. stated that she usually gets benadryl with the morphine, benadryl 25mg IV ordered, reviewed the chart and she had received this combo before. 05/17/17 18:25 -Labs are non-significant except reticulocyte 5.24, Hgb 11.7 from 11.6, wbc 12.2 (afebrile, likely from pain and stress induced). -Pt. feels much better, refused to be admitted, request to be discharged home. -I discussed the case and labs with the patient and DR. Paul, Dr. Paul agreed that the patient can be discharged home. -I checked the [facility] and she has received multiple narcotics in 2017, no more narcotics will be given to her. -Discharge home with motrin, bed rest, stay hydrated, follow up with your own pmd and asbestos cloth inspector within 2 days, return to the ER for any new or worsening signs or symptoms. - Lab Interpretations Lab Results: 05/17/17 17:41 05/17/17 18:30 Lab Results 05/17/17 18:30: Sodium 141, Potassium 4.3, Chloride 105, Carbon Dioxide 25, Anion Gap 15, BUN 12, Creatinine 0.9, Est GFR ( Amer) > 60, Est GFR (Non- Af Amer) > 60, Random Glucose 93, Calcium 9.2, Total Bilirubin 1.6 H, AST 27, ALT 28, Alkaline Phosphatase 82, Total Protein 7.4, Albumin 4.4, Globulin 3.0, Albumin/Globulin Ratio 1.4 05/17/17 17:41: WBC 12.2 H D, RBC 4.48, Hgb 11.7 L, Hct 33.2 L, MCV 74.1 L, MCH 26.1, MCHC 35.2, RDW 21.1 H, Plt Count 406, MPV 9.6, Gran % 68.0, Lymph % (Auto ) 16.9 L, [place] % (Auto) 11.9 H, Eos % (Auto) 2.5, Baso % (Auto) 0.7, Gran # 8.26 H, Lymph # 2.1, [place] # 1.5 H, Eos # 0.3, Baso # 0.09 05/17/17 17:41: Retic Count 5.24 H Interpretation: Abnormal lab values (Reticulocyte 5.24, Hgb 11.7 from 11.6, wbc 12.2 (afebrile, likely from pain and stress induced).) - RAD Interpretation Radiology Orders: 05/17/17 17:18 CHEST PORTABLE [RAD] Stat 05/17/17 17:20 DUPLEX LOWER EXTRM VEIN RIGHT [US] Stat -Chest xray: IMPRESSION: No focal consolidation, significant pleural effusion, or definite pneumothorax identified. -RLE Venuous Doppler: as pre preliminary report, no acute DVT Launch Operator: Radiologist - Medication Orders Current Medication Orders: Sodium Chloride (Sodium Chloride 0.9%) 1,000 mls @ 250 mls/hr IV .Q4H LACY Discontinued Medications Diphenhydramine HCl (Benadryl) 25 mg IVP STAT STA Stop: 05/17/17 18:11 Last Admin: 05/17/17 18:11 Dose: 25 mg IVP Administration Document 05/17/17 18:11 (Rec: 05/17/17 18:29 [id number]) Charges for Administration # of IVP Administrations 1 Sodium Chloride (Sodium Chloride 0.9%) 1,000 mls @ 999 mls/hr IV .Q1H1M STA Stop: 05/17/17 18:18 Last Admin: 05/17/17 18:12 Dose: 999 mls/hr eMAR Start Stop Document 05/17/17 18:12 RG (Rec: 05/17/17 18:12 [id number]) Intravenous Solution Start Date 05/17/17 Start Time 18:12 End Date 05/17/17 Ketorolac Tromethamine (Toradol) 30 mg IVP STAT STA Stop: 05/17/17 17:19 Last Admin: 05/17/17 18:11 Dose: 30 mg MAR Pain Assessment Document 05/17/17 18:11 (Rec: 05/17/17 18:11 [id number]) Pain Reassessment Is this a pain reassessment? Yes Sleep Is patient sleeping during reassessment? No Presence of Pain Presence of Pain Yes Pain Scale Used Pain Scale Used Numeric Location Pain Location Body Site Back Leg Description Description Constant IVP Administration Document 05/17/17 18:11 (Rec: 05/17/17 18:11 [id number]) Charges for Administration # of IVP Administrations 1 Morphine Sulfate (Morphine) 4 mg IVP STAT STA Stop: 05/17/17 17:26 Last Admin: 05/17/17 18:11 Dose: 4 mg MAR Pain Assessment Document 05/17/17 18:11 RG (Rec: 05/17/17 18:12 [id number]) Pain Reassessment Is this a pain reassessment? Yes IVP Administration Document 05/17/17 18:11 (Rec: 05/17/17 18:12 [id number] Charges for Administration # of IVP Administrations 2 - PA / ORE DRYER / Resident Statement MD/DO has reviewed & agrees with the documentation as recorded. Disposition/Present on Arrival - Present on Arrival Any Indicators Present on Arrival: No History of DVT/PE: No History of Uncontrolled Diabetes: No Urinary Catheter: No History of Decub. Ulcer: No History Surgical Site Infection Following: None - Disposition Have Diagnosis and Disposition been Completed?: Yes Diagnosis: Sickle cell crisis Disposition: HOME/ ROUTINE Disposition Time: 19:11 Patient Plan: Discharge Condition: IMPROVED Additional Instructions: -Discharge home with motrin, bed rest, stay hydrated, follow up with your own pmd and asbestos cloth inspector within 2 days, return to the ER for any new or worsening signs or symptoms. Prescriptions: Ibuprofen [Motrin Tab] 800 mg PO TID PRN #21 tab PRN Reason: Other Referrals: Shaik Vences MD [Primary Care Provider] - Follow up with primary Laury Long MD [Staff Provider] - Follow up with primary Forms: WORK NOTE
[2017-05-17] MEDS ORDERED: Sodium Chloride 0.9% 1,000 ML IV STA (17:18)
[2017-05-17] MEDS ORDERED: Morphine 4 mg/ml ISec IVP STA (17:19)
[2017-05-17] MEDS ORDERED: Morphine 2 mg/ml ISec IVP STA (17:25)
--- NOTE | 2017-05-17 17:44 | RAD ---
HISTORY: medical clearance COMPARISON: Chest x-ray performed 02/04/17 TECHNIQUE: Chest, one view. FINDINGS: Examination limited by habitus. LUNGS: No focal consolidation. Please note that chest x-ray has limited sensitivity for the detection of pulmonary masses. PLEURA: No significant pleural effusion identified. No definite pneumothorax . CARDIOVASCULAR: The cardiomediastinal silhouette appears within normal limits of size. OSSEOUS STRUCTURES: No acute osseous abnormality identified. VISUALIZED UPPER ABDOMEN: Unremarkable. OTHER FINDINGS: None. IMPRESSION: No focal consolidation, significant pleural effusion, or definite pneumothorax identified.
[2017-05-17 17:54] LABS: BASO # 0.09 K/mm3 (0.0-2.0); BASO % 0.7 % (0.0-3.0); EOS # 0.3 (0.0-0.7); EOS % 2.5 % (1.5-5.0); GRAN # 8.26 (1.4-6.5); HEMATOCRIT 33.2 % (36.0-48.0); LYMPH # 2.1 (1.2-3.4); LYMPH % 16.9 % (22.0-35.0); MEAN CELL VOLUME 74.1 fl (80.0-105.0); MEAN CORPUSCULAR HEMOGLOBIN 26.1 pg (25.0-35.0); MEAN CORPUSCULAR HGB CONC 35.2 g/dl (31.0-37.0); MEAN PLATELET VOLUME 9.6 fl (7.0-11.0); MONO # 1.5 (0.1-0.6); MONO % 11.9 % (1.0-6.0); RED CELL DISTRIBUTION WIDTH 21.1 % (11.5-14.5); WHITE BLOOD COUNT 12.2 10^3/ul (4.5-11.0)
[2017-05-17 18:02] LABS: RETIC% 5.24 % (0.5-1.5)
[2017-05-17] MEDS ORDERED: DiphenhydrAMINE 50 mg/ml Inj IVP STA (18:10)
[2017-05-17] MEDS ORDERED: Sodium Chloride 0.9% 1,000 ML IV SCH (18:30)
[2017-05-17 18:43] LABS: ALB/GLOB RATIO 1.4 (1.1-1.8); ALKALINE PHOSPHATASE 82 U/L (38-126); ALT/SGPT 28 U/L (7-56); AST/SGOT 27 U/L (14-36); BILIRUBIN,TOTAL 1.6 mg/dL (0.2-1.3); BLOOD UREA NITROGEN 12 mg/dL (7-21); CALCIUM 9.2 mg/dL (8.4-10.5); CARBON DIOXIDE 25 mmol/L (21-33); CHLORIDE 105 mmol/L (98-107); GFR AFRICAN-AMERICAN > 60; GLUCOSE,RANDOM 93 mg/dL (70-110); POTASSIUM 4.3 mmol/L (3.6-5.0); SODIUM 141 mmol/L (132-148); TOTAL PROTEIN 7.4 g/dL (5.8-8.3)
[2017-05-17 18:52] VITALS: O2SAT 100
[2017-05-17 19:44] VITALS: BP 120/86; PULSE 80; RESP 17; TEMP 98.7
--- NOTE | 2017-05-18 09:12 | US ---
PROCEDURE: Right lower extremity venous US HISTORY: Leg pain and swelling. Evaluate for DVT. PHYSICIAN(S): Tavo Saab M.D. TECHNIQUE: Duplex sonography and color-flow Doppler with graded compression were used to evaluate the deep venous system of the right lower extremity. FINDINGS: The visualized deep venous system of the right lower extremity is sonographically normal and compressible. Normal waveforms and augmentation are seen. There is no sonographic evidence for deep venous thrombosis in the visualized segments of the right lower extremity. IMPRESSION: 1. No sonographic evidence for deep venous thrombosis in the visualized segments of the right lower extremity.
== END 2017-05-17 19:43 | disposition home or self-care (01) ==
LOC: ED 16:52
DX: D57.00 Hb-SS disease with crisis, unspecified (principal)
CPT/HCPCS: 71010; 80053; 85025; 85044; 93971; 96374; 96375; 99284; J1200; J1885; J2270; J7040